=== PATIENT | female | born 1985 | race Caucasian/White ===

== ENCOUNTER 2024-11-16 14:22 | Outpatient (CLI) | payer MEDICAID ==
[2024-11-16] MEDS ORDERED: iohexol 300mg/ml 100ml inj. ONE ×2 (16:10→16:11)
--- NOTE | 2024-11-16 16:42 | RADIOLOGY REPORT ---
EXAM: CT CT ABDOMEN PELVIS W/ IV CONTRAST HISTORY: LEFT OVARIAN MASS TECHNIQUE: Volumetric multidetector CT images of the abdomen and pelvis were obtained after the administration of intravenous contrast. All CT scans at this facility use dose modulation, iterative reconstruction, and/or weight based dosing when appropriate to reduce radiation dose to as low as reasonably achievable. COMPARISON: None FINDINGS: [LOWER CHEST]: The partially visualized lung bases are clear without a pleural effusion. [LIVER]: Normal hepatic size without suspicious focal lesion. [GALLBLADDER AND BILIARY TREE]: No cholelithiasis. [SPLEEN]: Unremarkable. [PANCREAS]: Unremarkable. [ADRENAL GLANDS]: Unremarkable [KIDNEYS]: No hydronephrosis. No nephroureterolithiasis. No suspicious focal lesion. [BLADDER]: Unremarkable for the degree distention. [REPRODUCTIVE ORGANS]: 8.1 x 10.2 x 10.2 cm teratoma with multiple varying densities including fat, calcification and soft tissue. Overall oval-shaped [BOWEL/MESENTERY]: Stomach is normal. No CT evidence of bowel obstruction. mild stool burden. [ASCITES]: Absent [LYMPHADENOPATHY]: No pathologically enlarged lymph nodes by CT size criteria [VASCULATURE]: No aneurysmal dilatation. [ABDOMINAL WALL]: Unremarkable. [MUSCULOSKELETAL]: No acute fracture or aggressive focal osseous lesion. IMPRESSION: 1. Large dermoid cyst/teratoma with multiple variable densities as detailed above. 2. No significant inflammatory stranding to suggest rupture or chemical peritonitis.
== END 2024-11-16 23:59 | disposition home or self-care (01) ==
LOC: MRI 14:22
PROVIDERS: ATTEND Physician Assistant Medical
DX: N83.8 Other noninflammatory disorders of ovary, fallopian tube and broad ligament (principal); R93.89 Abnormal findings on diagnostic imaging of other specified body structures
CPT/HCPCS: 74177; Q9967

== ENCOUNTER 2024-12-13 08:29 | Outpatient (CLI) | payer MEDICAID ==
--- NOTE | 2024-12-13 10:24 | RADIOLOGY REPORT ---
INDICATION: INTRA-ABD AND PELVIC SWELLING, MASS AND LUMP TECHNIQUE: Multiple real-time grayscale transabdominal sonographic images along with color and duplex Doppler of the uterus and ovaries were obtained. COMPARISON: CT CT ABDOMEN PELVIS W/ IV CONTRAST on DOS: 11/16/24 FINDINGS: The uterus measures 8.8 x 5.1 x 3.9 cm. The endometrial stripe measures 0.6 cm. Right ovary measures 3.2 x 1.9 x 1.8 cm with normal Doppler color flow. Mixed echogenic cyst in the right ovary measures 1.6 cm. Left ovary measures 4.9 x 2.6 x 2.1 cm with normal Doppler color flow Indeterminate soft-tissue pelvic mass is present measuring 11.3 x 11.2 cm. This likely corresponds to known dermoid seen on CT. IMPRESSION: Indeterminate soft-tissue pelvic mass is present measuring 11.3 x 11.2 cm. This likely corresponds to known dermoid better seen and characterize on CT. Recommend dining chair seat cushion trimmer consultation. Indeterminate Mixed echogenic cystic lesion in the right ovary possibly representing a hemorrhagic cyst. Recommend repeat ultrasound in 6 weeks.
== END 2024-12-13 23:59 | disposition home or self-care (01) ==
LOC: RAD 08:29
PROVIDERS: ATTEND Obstetrics & Gynecology
DX: N83.291 Other ovarian cyst, right side (principal); R19.00 Intra-abdominal and pelvic swelling, mass and lump, unspecified site
CPT/HCPCS: 76830; 76856; 93976